=== PATIENT | male | born 1995 | race Caucasian/White ===

== ENCOUNTER 2016-03-10 20:56 | Emergency (ER) | payer OTHER ==
[2016-03-10 21:50] VITALS: BP 121/64; PULSE 126; TEMP 102.9; BMI 29.2
[2016-03-10] MEDS ORDERED: IBUPROFEN 600 MG TABLET (FP) PO ONE (22:54)
[2016-03-10] MEDS ORDERED: CLINDAMYCIN 600MG PREMIX IVPB 50 ML IVPB ONE ×2 (23:03→23:18)
[2016-03-10] MEDS ORDERED: DEXAMETHASONE LIQUID 0.5 MG/5 ML 240 ML BULK BOTTLE PO ONE (23:03)
[2016-03-10] MEDS ORDERED: IBUPROFEN 800 MG/8 ML IJ IVPB ONE ×2 (23:04→23:18)
[2016-03-10] MEDS ORDERED: DEXAMETHASONE SOD PHOSPHATE 10 MG/1 ML VIAL ONE (23:50)
--- NOTE | 2016-03-11 00:19 | PDOC ---
[id number] 4d SORE THROAT Time Seen by Provider: 03/10/16 21:57 - History of Present Illness Initial Comments: 03/11/16 02:06 CHIEF COMPLAINT: throat pain HISTORY OF PRESENT ILLNESS: 20 yo M with no PMH presents to ED with intermittent throat pain x 2 weeks. Patient states that he "thinks he has strep " and that he has not been able to eat anything for the last 3 days. He reports having a fever of up to 103F the last few days. He has difficulty swallowing but denies any difficulty breathing. He also reports a change in voice No recent travel or sick contacts. PAST MEDICAL HISTORY: Denies past medical history FAMILY HISTORY: Denies SOCIAL HISTORY: Denies tobacco, alcohol, illicit drug use. SURGICAL HISTORY: Denies ALLERGIES: No known drug allergies REVIEW OF SYSTEMS General/Constitutional: Denies fever or chills. Denies weakness, weight change. HEENT: Throat pain, swelling of throat, difficulty swallowing x 3 days. Denies change in vision. Denies ear pain or discharge. Denies sore throat. Cardiovascular: Denies chest pain or shortness of breath. Respiratory: Denies cough, wheezing, or hemoptysis. Gastrointestinal: Denies nausea, vomiting, diarrhea or constipation. Denies rectal bleeding. Genitourinary: Denies dysuria, frequency, or change in urination. Musculoskeletal: Denies joint or muscle swelling or pain. Denies neck or back pain. Skin and breasts: Denies rash or easy bruising. Neurologic: Denies headache, vertigo, loss of consciousness, or loss of sensation. PHYSICAL EXAM General Appearance: Febrile to 102.9F. Well-appearing, appropriately dressed. No apparent distress, no intoxication. HEENT: Tonsils 4+ with multiple ulcerations and exudate bilaterally. Muffled, "hot potato" voice. No uvular swelling or deviation. EOMI, PERRLA. No conjunctival pallor. No photophobia, scleral icterus. Neck: Supple. Trachea midline. No tenderness, rigidity, carotid bruit, stridor , lymphadenopathy, or thyromegaly. Respiratory/Chest: Lungs CTAB. No shortness of breath, respiratory distress. Cardiovascular: RRR. S1, S2. Integumentary: Appropriate color, dry, warm. No cyanosis, erythema, jaundice or rash Neurologic: health information specialist II-XII intact. Fully oriented, alert. Appropriate mood/affect. Motor strength 5/5. No appreciable EOM palsy, facial droop or sensory deficit. 03/11/16 02:29 Past History - Past Medical History Allergies/Adverse Reactions: Allergies Allergy/AdvReac Type Severity Reaction Status Date / Time No Known Allergies Allergy Verified 03/10/16 21:36 Home Medications: Ambulatory Orders Clindamycin [Cleocin -] 300 mg PO QID #28 capsule 03/11/16 Other medical history: denies - Psycho/Social/Smoking Cessation Hx Suicidal Ideation: No Smoking History: Never smoked Hx Alcohol Use: No Drug/Substance Use Hx: No *Physical Exam - Vital Signs Last Vital Signs Temp Pulse Resp BP Pulse Ox 102.9 F H 126 H 18 121/64 97 03/10/16 21:36 03/10/16 21:36 03/10/16 21:36 03/10/16 21:36 03/10/16 21:36 ED Treatment Course - Medications Given in the ED: ED Medications Discontinued Medications Generic Name Dose Route Start Last Admin Trade Name Tristen PRN Reason Stop Dose Admin Dexamethasone 10 mg 03/10/16 23:03 03/11/16 00:00 Decadron Liquid - PO 03/10/16 23:04 10 mg ONCE ONE Administration Clindamycin Phosphate 50 mls @ 100 mls/hr 03/10/16 23:03 03/10/16 23:27 Cleocin 600 Mg Premix Ivpb - IVPB 03/10/16 23:32 100 mls/hr ONCE ONE Administration Ibuprofen 800 mg 03/10/16 23:04 03/10/16 23:27 Caldolor Injection - IVPB 03/10/16 23:05 800 mg ONCE ONE Administration Medical Decision Making - Medical Decision Making 03/11/16 02:28 20 yo M with no PMH presents to ED with sore throat accompanied by anorexia x 3 days. Clinical presentation consistent with severe peritonsillar cellulitis. -600 mg Clindamycin IVPB -10 mg Decadron po -800 mg ibuprofen IVPB Discussed case with on-call ENT physician MD Viveros. Per MD Viveros, patient to be treated outpatient tomorrow morning at 9:30 am. -300 mg Clindamycin po QID, prescription sent to pharmacy. Advised patient to keep appointment with MD Viveros tomorrow morning for outpatient procedure. Advised patient of signs and symptoms for return to ED. Patient verbalized understanding and agrees to plan. *DC/Admit/Observation/Transfer Diagnosis at time of Disposition: Peritonsillar cellulitis - Discharge Dispostion Disposition: HOME Condition at time of disposition: Stable Admit: No - Prescriptions Prescriptions: Clindamycin [Cleocin -] 300 mg PO QID #28 capsule - Referrals Referrals: Mikel Man MD [Staff Physician] - - Patient Instructions Printed Discharge Instructions: DI for Peritonsillar Abscess -- Adult Additional Instructions: Please follow up with Dr. Viveros tomorrow. You have an appointment scheduled for 9:30 am, do NOT miss this appointment. If you experience difficulty breathing, feel that the swelling is worsening, are unable to lie down due to the swelling in your throat, develop nausea, vomiting, or diarrhea, or you have any new or worsening symptoms, please return to the ER immediately. - Post Discharge Activity Work/School Note: Back to Work
== END 2016-03-11 00:59 | disposition home or self-care (01) ==
LOC: JER 20:56
PROC: 3E03329 Introduction of Other Anti-infective into Peripheral Vein, Percutaneous Approach (ICD-10-PCS; principal; 2016-03-10)
PROC: 3E033GC Introduction of Other Therapeutic Substance into Peripheral Vein, Percutaneous Approach (ICD-10-PCS; 2016-03-10)
DX: J36 Peritonsillar abscess (principal)
CPT/HCPCS: 99281-25; 99282-25